=== PATIENT | female | born 1960 | race Caucasian/White ===

== ENCOUNTER → 2017-01-30 | Outpatient (CLI) | payer BC ==
[~2017-01-30] MED LIST: VICODIN 5/500 T1 TAB PO
--- NOTE | 2017-01-30 09:28 | RADIOLOGY REPORT PS360 ---
US RUQ-(ABD LTD)1ORGAN/QUAD/FU HISTORY: RT SIDED ABDOMINAL PAIN ORDERING PHYSICIAN: Flako Bruner MD PATIENT AGE: 56 years COMPARISON: None FINDINGS: PANCREAS: Unremarkable. No obvious mass or abnormal fluid collection. No ductal dilatation LIVER: No focal liver lesions demonstrated. Homogeneous echogenicity. No intrahepatic biliary ductal dilatation evident RIGHT KIDNEY: Unremarkable. Normal size and echogenicity. No hydronephrosis GALLBLADDER: There are multiple gallstones present. No gallbladder wall thickening, pericholecystic fluid, or biliary dilatation is evident. Common bile duct is normal at 3 mm. IMPRESSION: Cholelithiasis
== END ==
LOC: RAD 08:14
DX: R10.9 Unspecified abdominal pain (principal)

== ENCOUNTER → 2017-08-16 | Outpatient (CLI) | payer BC ==
[~2017-08-16] MED LIST changes: +PERCOCET 325 MG1 TA4 PO
[2017-08-16 14:21] LABS: BUN 11 mg/dL (7-18); GFR (ESTIMATED) 127 ML/MIN (59-)
== END ==
LOC: LAB 11:52
PROVIDERS: Nurse Practitioner Family
DX: Z00.00 Encounter for general adult medical examination without abnormal findings (principal)

== ENCOUNTER → 2017-09-05 | Outpatient (CLI) | payer BC ==
--- NOTE | 2017-09-08 10:07 | RADIOLOGY REPORT PS360 ---
DIG MAMM-SCREEN RAHEEM W/CAD CAD Screening COMPARISON: None, previous mammograms at [facility] have been purged INDICATION: There is been previous lumpectomy right breast with follow-up chemotherapy and radiation therapy 2001 TECHNIQUE: Standard CC and MLO images were obtained. R2 CAD reviewed. FINDINGS: Scattered fibroglandular densities are seen in the central portions of both breasts. There is minimal post lumpectomy scarring upper central portion of the right breast. There are few benign-appearing calcination is in each breast. There is no suspicious lesion and there are no suspicious microcalcifications. There is a fatty replaced node left axilla. IMPRESSION: Fibrofatty parenchyma with minimal post lumpectomy scarring right breast and no suspicious lesion seen recommend yearly follow-up BI-RADS CATEGORY: 2_Benign RECOMMENDED FOLLOWUP: 12M 12 MONTH FOLLOW-UP (A letter has been sent to the patient regarding results of the study.)
== END ==
LOC: RAD 08:12
DX: Z12.31 Encounter for screening mammogram for malignant neoplasm of breast (principal)
CPT/HCPCS: G0202